=== PATIENT | female | born 1975 | race African-American/Black ===

== ENCOUNTER 2023-07-24 11:39 | Emergency (ER) | payer OTHER, SELFPAY ==
[2023-07-24] VITALS (26 sets, daily range): BP systolic 176–240; BP diastolic 87–140; PULSE 64–90; TEMP 36.6; O2SAT 96–99; BMI 31.9
--- NOTE | 2023-07-24 13:25 | CT_ITS ---
The [address] [address] Patient Name: EDMOND GRAFF MRN: [id number] date: 1975 Sex: F Assigned Patient Location: ER Current Patient Location: Accession/Order Number: [id number] Exam Date: 07/24/2023 13:55 Report Date: 07/24/2023 14:28 At the request of: FERCHO RANGEL Procedure: CT cervical spine wo con EXAM: CT cervical spine wo con, XR chest 1V, CT head/brain wo con COMPARISON: None available. CLINICAL INFORMATION: Cervical radiculopathy, hypertension. TECHNIQUE: Axial noncontrast images were obtained through the brain and cervical spine with sagittal and coronal reconstructions. Dose reduction techniques were achieved by using automated exposure control and/or adjustment of mA and/or kV according to patient size and/or use of iterative reconstruction technique. Single frontal x-ray of the chest. FINDINGS: CT head: BRAIN: No intracranial hemorrhage. No extra-axial collection. No mass or mass effect. No midline shift. Helm-white matter differentiation is preserved. CSF: Ventricles and sulci appropriate for age. Basal cisterns are patent. ORBITS: Visualized orbital structures are unremarkable. SINUSES AND MASTOID AIR CELLS: Paranasal sinuses are clear. Mastoid air cells are clear. BONES: No acute osseous abnormality. SOFT TISSUES: Unremarkable. CT C-spine: No CT evidence of acute osseous abnormality. Straightening/reversal of the normal cervical lordosis, may be positional or may suggest muscle spasm. Moderate degenerative disc disease C4-7. Scattered moderate facet arthropathy bilaterally, most severe at C7-T1. 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 There is also a left paracentral disc osteophyte complex at C4-C5 resulting in narrowing of the left lateral recess at C4-C5, as well as a right paracentral disc osteophyte complex at C5-C6 resulting in narrowing of the right lateral recess at C5-C6. Mild bilateral foraminal narrowing at C4-C5. Chest x-ray: Cardiomediastinal silhouette within normal limits. No focal consolidation, pleural effusion, or pneumothorax. CT/CT cervical spine wo con IMPRESSION: 1. Moderate cervical spondylosis resulting in at least moderate spinal canal stenosis from C4 through C7. There is also a left paracentral disc osteophyte complex at C4-C5 resulting in narrowing of the left lateral recess at C4-C5, as well as a right paracentral disc osteophyte complex at C5-C6 resulting in narrowing of the right lateral recess at C5-C6. Consider further evaluation with follow-up nonemergent MRI C-spine as clinically appropriate. 2. No evidence of acute intracranial abnormality. 3. No evidence of acute cardiopulmonary abnormality. Electronically authenticated by: CESIA NOVAK Date: 07/24/2023 14:28
--- NOTE | 2023-07-24 13:25 | ECG_ITS ---
The [facility] Test Date: 2023-07-24 Pat Name: EDMOND GRAFF Department: Room: - Gender: Female Staple [employer]: : 1975 Requested By: Order Number: [id number] Reading MD: AMANDA MONTERO Measurements Intervals Justice Rate: 69 P: 23 [place]: 140 QRS: 51 QRSD: 92 T: 90 QT: 412 QTc: 432 Interpretive Statements 1100 Sinus rhythm [address] depression [address]/Twave abnormality, consider lateral ischemia 9150 abnormal ECG Electronically Signed On 07-24-2023 22:30:03 EDT by AMANDA MONTERO
--- NOTE | 2023-07-24 13:25 | CT_ITS ---
The [address] [address] Patient Name: EDMOND GRAFF MRN: [id number] date: 1975 Sex: F Assigned Patient Location: ER Current Patient Location: Accession/Order Number: [id number] Exam Date: 07/24/2023 13:55 Report Date: 07/24/2023 14:28 At the request of: FERCHO RANGEL Procedure: CT head/brain wo con EXAM: CT cervical spine wo con, XR chest 1V, CT head/brain wo con COMPARISON: None available. CLINICAL INFORMATION: Cervical radiculopathy, hypertension. TECHNIQUE: Axial noncontrast images were obtained through the brain and cervical spine with sagittal and coronal reconstructions. Dose reduction techniques were achieved by using automated exposure control and/or adjustment of mA and/or kV according to patient size and/or use of iterative reconstruction technique. Single frontal x-ray of the chest. FINDINGS: CT head: BRAIN: No intracranial hemorrhage. No extra-axial collection. No mass or mass effect. No midline shift. Helm-white matter differentiation is preserved. CSF: Ventricles and sulci appropriate for age. Basal cisterns are patent. ORBITS: Visualized orbital structures are unremarkable. SINUSES AND MASTOID AIR CELLS: Paranasal sinuses are clear. Mastoid air cells are clear. BONES: No acute osseous abnormality. SOFT TISSUES: Unremarkable. CT C-spine: No CT evidence of acute osseous abnormality. Straightening/reversal of the normal cervical lordosis, may be positional or may suggest muscle spasm. Moderate degenerative disc disease C4-7. Scattered moderate facet arthropathy bilaterally, most severe at C7-T1. 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 There is also a left paracentral disc osteophyte complex at C4-C5 resulting in narrowing of the left lateral recess at C4-C5, as well as a right paracentral disc osteophyte complex at C5-C6 resulting in narrowing of the right lateral recess at C5-C6. Mild bilateral foraminal narrowing at C4-C5. Chest x-ray: Cardiomediastinal silhouette within normal limits. No focal consolidation, pleural effusion, or pneumothorax. CT/CT head/brain wo con IMPRESSION: 1. Moderate cervical spondylosis resulting in at least moderate spinal canal stenosis from C4 through C7. There is also a left paracentral disc osteophyte complex at C4-C5 resulting in narrowing of the left lateral recess at C4-C5, as well as a right paracentral disc osteophyte complex at C5-C6 resulting in narrowing of the right lateral recess at C5-C6. Consider further evaluation with follow-up nonemergent MRI C-spine as clinically appropriate. 2. No evidence of acute intracranial abnormality. 3. No evidence of acute cardiopulmonary abnormality. Electronically authenticated by: CESIA NOVAK Date: 07/24/2023 14:28
--- NOTE | 2023-07-24 13:27 | ED.GENADUL1 ---
HPI HPI - General Adult General Chief complaint: Back Pain/Injury Stated complaint: UPPER EXTREMITY PAIN RIGHT Time Seen by Provider: 07/24/23 13:10 Source: patient Mode of arrival: walk-in Limitations: no limitations History of Present Illness HPI narrative: Patient is a 48-year-old female with a remote history of hypertension not currently being treated who presents to the ER for 3-week history of pain to the right side of the neck into the right shoulder and right arm. She was seen at the [place] emergency department on 07/13 and states she had plain film x-rays that were unremarkable. She was discharged home. She is noted to be significantly hypertensive at initial interview, she states she stopped taking medication about 5 years ago. She does not currently have a PCP. 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 She has not had any headache, visual changes, chest pain or dizziness. She states she has a family history of hypertension. Records from [place] show the patient was significantly hypertensive at their emergency department on 07/13, it does not appear the hypertension was addressed by the ER staff. Pain in the right side of the neck radiates into the right shoulder with some radiation into the arm. She occasionally has tingling in the low right index finger. She is right-hand dominant. Related Data Previous Rx's ?Medication ?Instructions ?Recorded hydrocodone 5 mg-acetaminophen 325 1 tab PO Q6H PRN pain 3 days #12 07/24/23 mg tablet tabs lisinopril 10 mg tablet 10 mg PO DAILY #20 tabs 07/24/23 methocarbamol 750 mg tablet 750 mg PO TID PRN pain #20 tabs 07/24/23 methylprednisolone 4 mg tablets in See Rx Instructions .Route 07/24/23 a dose pack (Medrol (Rigoberto)) .COMPLEX #21 ea Allergies Allergy/AdvReac Type Severity Reaction Status Date / Time No Known Drug Allergies Allergy Verified 07/24/23 11:42 Opioid HPI Opioid Management Most Recent Opioid Data: Last Pain Scale 7 07/24/23 13:35 Last MAR Pain Assessment 07/24/23 13:35 Review of Systems ROS Constitutional Denies: fever or chills Ears, nose, mouth, and throat Denies: throat pain or nasal congestion Cardiovascular Denies: chest pain Respiratory Denies: shortness of breath Gastrointestinal Denies: nausea or vomiting Musculoskeletal Reports: neck pain, extremity pain, extremity swelling and joint pain Integumentary/Breast Denies: rash Neurological Reports: numbness in extremities; Denies: headache Hematologic/Lymphatic Denies: easy bruising or easy bleeding Exam Narrative Exam Narrative: Gen.: Awake, alert, in no distress Head: Normocephalic, atraumatic ENT: Moist mucous membranes, No posterior cervical tenderness in the midline. Diffuse mild tenderness of the right paraspinal muscles of the cervical spine and right trapezius area. Respiratory: No respiratory distress, lungs clear bilaterally Cardio: Regular rate and rhythm Extremities: Diffuse pain in the right trapezius and shoulder, normal b2b sales consultant strength in the right hand with normal biceps tendon strength of the right upper extremity. No bony point tenderness or obvious deformity Psych: Normal mood and affect Neuro: No focal neuro deficit Skin: Warm, dry, intact Constitutional Vital Signs, click to edit/add: Last Vital Signs Temp 97.9 F 07/24/23 11:42 Pulse 83 07/24/23 15:20 Resp 18 07/24/23 15:20 BP 185/88 H 07/24/23 15:15 Pulse Ox 96 07/24/23 15:20 O2 Del Method Room Air 07/24/23 11:42 Course Vital Signs Vital signs: Vital Signs Temperature 97.9 F 07/24/23 11:42 Pulse Rate 87 07/24/23 11:42 Respiratory Rate 20 07/24/23 11:42 Blood Pressure 240/140 H 07/24/23 11:42 Pulse Oximetry 98 07/24/23 11:42 Oxygen Delivery Method Room Air 07/24/23 11:42 Temperature 97.9 F 07/24/23 11:42 Pulse Rate 83 07/24/23 15:20 Respiratory Rate 18 07/24/23 15:20 Blood Pressure 185/88 H 07/24/23 15:15 Pulse Oximetry 96 07/24/23 15:20 Oxygen Delivery Method Room Air 07/24/23 11:42 Medical Decision Making MDM Narrative Medical decision making narrative: Patient was medicated with labetalol, Vasotec and remedicated with hydralazine with improvement of her blood pressure to 185/88, a much more safe range. She has no headache, visual changes or chest pain. CTs of the head and C-spine were performed with a chest x-ray showing the patient has significant arthritis and narrowing in the cervical spine, consistent with her exam and diagnosis of cervical radiculopathy. Lab studies are stable although she was mildly hypokalemic with oral potassium chloride given in the ER. She will be discharged home on symptomatic medication for cervical radiculopathy, she has an upcoming appointment in 2 weeks with a primary care provider and she was placed on lisinopril 10 mg daily until that time. Return to the ER if symptoms change or worsen. Patient is comfortable with discharge home, She was reevaluated by attending physician prior to discharge.. She is otherwise neurovascularly intact. Medical Records Medical records reviewed: Yes I reviewed the patient's medical records Lab Data Lab results reviewed: Yes I reviewed the patient's lab results Labs: Lab Results 07/24/23 Range/Units 13:00 WBC 12.2 H (4.0-11.0) 10^3/uL RBC 4.76 (4.20-5.40) 10^6/uL Hgb 11.8 L (12.0-16.0) g/dL Hct 38.2 (36.0-48.0) % MCV 80.3 L (81.0-99.0) fL MCH 24.8 L (26.7-34.0) pg MCHC 30.9 (29.9-35.2) g/dL RDW 20.1 H (11.0-15.0) % Plt Count 292 (150-450) 10^3/uL MPV 11.9 (9.5-13.5) fL Neut % (Auto) 81.1 H (43.0-75.0) % Lymph % (Auto) 12.6 L (20.5-60.0) % Ralls % (Auto) 4.1 (1.7-12.0) % Eos % (Auto) 0.2 L (0.9-7.0) % Baso % (Auto) 0.4 (0.2-2.0) % Neut # (Auto) 9.9 H (1.4-6.5) 10^3/uL Lymph # (Auto) 1.5 (1.2-3.8) 10^3/uL Ralls # (Auto) 0.5 (0.3-0.8) 10^3/uL Eos # (Auto) 0.0 (0.0-0.7) 10^3/uL Baso # (Auto) 0.1 (0.0-0.1) 10^3/uL Abs Immat Gran (auto) 0.20 H (0.00-0.03) 10^3/uL Imm/Tot Granulo (auto) 1.6 H (0.0-0.5) % PT 10.4 (9.0-11.6) sec INR 0.98 Sodium 135 L (136-145) mmol/L Potassium 3.1 L (3.5-5.1) mmol/L Chloride 97 L (98-107) mmol/L Carbon Dioxide 30.2 (21.0-32.0) mmol/L Anion Gap 10.9 BUN 14.0 (7.0-18.0) mg/dL Creatinine 0.83 (0.55-1.02) mg/dL Est GFR ( Amer) >60 (>=60) Est GFR (Non-Af Amer) >60 (>=60) BUN/Creatinine Ratio 16.9 Glucose 123 H (74-106) mg/dL Calcium 9.0 (8.5-10.1) mg/dL Total Bilirubin 0.4 (0.2-1.0) mg/dL AST 15 (15-37) U/L ALT 17 (14-59) U/L Alkaline Phosphatase 73 (46-116) U/L Troponin I High Sens 22.6 (4.0-51.3) pg/mL NT-Pro-B Natriuret Pep 591.0 (<=900.0) pg/mL Total Protein 7.7 (6.4-8.2) g/dL Albumin 3.9 (3.4-5.0) g/dL Globulin 3.8 g/dL Albumin/Globulin Ratio 1.0 TSH 0.636 (0.358-3.740) uIU/mL Imaging Data CT scan - head: Attestation: I have reviewed the pertinent imaging results. Radiologist's impression: ITS Impressions Cervical Spine CT 07/24/23 13:25 IMPRESSION: 1. Moderate cervical spondylosis resulting in at least moderate spinal canal stenosis from C4 through C7. There is also a left paracentral disc osteophyte complex at C4-C5 resulting in narrowing of the left lateral recess at C4-C5, as well as a right paracentral disc osteophyte complex at C5-C6 resulting in narrowing of the right lateral recess at C5-C6. Consider further evaluation with follow-up nonemergent MRI C-spine as clinically appropriate. 2. No evidence of acute intracranial abnormality. 3. No evidence of acute cardiopulmonary abnormality. Electronically authenticated by: CESIA NOVAK Date: 07/24/2023 14:28 Chest X-Ray 07/24/23 13:25 IMPRESSION: 1. Moderate cervical spondylosis resulting in at least moderate spinal canal stenosis from C4 through C7. There is also a left paracentral disc osteophyte complex at C4-C5 resulting in narrowing of the left lateral recess at C4-C5, as well as a right paracentral disc osteophyte complex at C5-C6 resulting in narrowing of the right lateral recess at C5-C6. Consider further evaluation with follow-up nonemergent MRI C-spine as clinically appropriate. 2. No evidence of acute intracranial abnormality. 3. No evidence of acute cardiopulmonary abnormality. Electronically authenticated by: CESIA NOVAK Date: 07/24/2023 14:[address] 07/24/23 13:25 IMPRESSION: 1. Moderate cervical spondylosis resulting in at least moderate spinal canal stenosis from C4 through C7. There is also a left paracentral disc osteophyte complex at C4-C5 resulting in narrowing of the left lateral recess at C4-C5, as well as a right paracentral disc osteophyte complex at C5-C6 resulting in narrowing of the right lateral recess at C5-C6. Consider further evaluation with follow-up nonemergent MRI C-spine as clinically appropriate. 2. No evidence of acute intracranial abnormality. 3. No evidence of acute cardiopulmonary abnormality. Electronically authenticated by: CESIA NOVAK Date: 07/24/2023 14:28 ECG Data Attestation: I personally reviewed and interpreted this ECG as follows: (Normal sinus rhythm at a rate of 69, no acute ST elevation or ectopy. EKG reviewed by attending physician.) Discharge Plan Discharge Stand Alone Forms: Portal Instructions Chief Complaint: Back Pain/Injury Clinical Impression: Cervical radiculopathy, Hypertension Patient Disposition: Home, Self-Care Time of Disposition Decision: 15:40 Condition: Good Prescriptions / Home Meds: New hydrocodone-acetaminophen 5-325 mg tablet 1 tab PO Q6H PRN (Reason: pain) 3 Days Qty: 12 0RF Rx Instructions: DX: M54.12 methocarbamol 750 mg tablet 750 mg PO TID PRN (Reason: pain) Qty: 20 0RF methylprednisolone [Medrol (Rigoberto)] 4 mg tablets,dose pack See Rx Instructions .ROUTE .COMPLEX Qty: 21 0RF Rx Instructions: Taper as directed lisinopril 10 mg tablet 10 mg PO DAILY Qty: 20 0RF Print Language: Uruguayan Instructions: Cervical Radiculopathy (ED), Hypertension (ED) Referrals: Physician,Non-Staff, MD [Primary Care Provider] - 1 week
[2023-07-24 13:31] LABS: Basophils Absolute Auto 0.1 10^3/uL (0.0-0.1); Basophils Percent Auto 0.4 % (0.2-2.0); Eosinophils Percent Auto 0.2 % (0.9-7.0); Hematocrit 38.2 % (36.0-48.0); Hemoglobin 11.8 g/dL (12.0-16.0); Immature Granulocytes Pct Auto 1.6 % (0.0-0.5); Lymphocytes Absolute Auto 1.5 10^3/uL (1.2-3.8); Lymphocytes Percent Auto 12.6 % (20.5-60.0); Mean Corpuscular HGB Conc 30.9 g/dL (29.9-35.2); Mean Corpuscular Hemoglobin 24.8 pg (26.7-34.0); Mean Corpuscular Volume 80.3 fL (81.0-99.0); Mean Platelet Volume 11.9 fL (9.5-13.5); Monocytes Absolute Auto 0.5 10^3/uL (0.3-0.8); Monocytes Percent Auto 4.1 % (1.7-12.0); Neutrophils Absolute Auto 9.9 10^3/uL (1.4-6.5); Neutrophils Percent Auto 81.1 % (43.0-75.0); Platelet Count 292 10^3/uL (150-450); Red Blood Count 4.76 10^6/uL (4.20-5.40); Red Cell Distribution Width 20.1 % (11.0-15.0); White Blood Count 12.2 10^3/uL (4.0-11.0)
[2023-07-24] MEDS: METHYLPREDNISOLONE SOD SUCC PF 125 MG/2 ML VIAL IVP (13:35)
[2023-07-24] MEDS: ENALAPRILAT DIHYDRATE 1.25 MG/ML VIAL IV (13:35)
[2023-07-24] MEDS: LABETALOL HCL 20 MG/4 ML SYRINGE IVP (13:35)
[2023-07-24] MEDS: KETOROLAC TROMETHAMINE 30 MG/ML VIAL IVP (13:35)
[2023-07-24 13:45] LABS: INR 0.98; Prothrombin Time 10.4 sec (9.0-11.6)
[2023-07-24 14:01] LABS: Anion Gap 10.9
[2023-07-24 14:09] LABS: Alanine Aminotransferase 17 U/L (14-59); Albumin Level 3.9 g/dL (3.4-5.0); Alkaline Phosphatase 73 U/L (46-116); Aspartate Amino Transferase 15 U/L (15-37); BUN Creatinine Ratio 16.9; Bilirubin Total 0.4 mg/dL (0.2-1.0); Carbon Dioxide 30.2 mmol/L (21.0-32.0); Chloride 97 mmol/L (98-107); Estimated GFR (African America >60 (>=60); Estimated GFR (Non-African Ame >60 (>=60); Globulin 3.8 g/dL; Glucose 123 mg/dL (74-106); Potassium 3.1 mmol/L (3.5-5.1); Sodium 135 mmol/L (136-145); Thyroid Stimulating Hormone 0.636 uIU/mL (0.358-3.740); Total Protein 7.7 g/dL (6.4-8.2); Troponin I High Sensitivity 22.6 pg/mL (4.0-51.3)
[2023-07-24] MEDS: POTASSIUM CHLORIDE 10 MEQ ER TABLET 40 MEQ PO (14:36)
[2023-07-24] MEDS: HYDRALAZINE HCL 20 MG/ML VIAL 10 MG IVP (14:36)
== END 2023-07-24 16:04 | disposition home or self-care (01) ==
PROVIDERS: Physician Assistant; Emergency Provider Emergency Medicine
DX: M54.12 Radiculopathy, cervical region (principal); I10 Essential (primary) hypertension; Z79.899 Other long term (current) drug therapy
CPT/HCPCS: 36415; 70450; 71045; 72125; 80053; 83880; 84443; 84484; 85025; 85610; 93005; 96374; 96375; 99285; J2919